=== PATIENT | male | born 1995 | race Caucasian/White ===

== ENCOUNTER 2019-12-04 14:23 | Emergency (ER) | payer OTHER ==
[~2019-12-04] VITALS: Ht 182.9 cm; Wt 56.7 kg
[~2019-12-04 14:23] MED LIST: ALLEGRA ALLERGY60 MG; IBUPROFEN 800800 M1 PO; MAXITROL EYE DRO5 ML OP; MIRALAX255 GM PO; NAPHCON-A EYE D15 ML OP; PROBIOTIC1 EAC1 PO; SINGULAIR 10 MG10 M1 PO; XOPENEX0.31 MG/3 IH; ZYRTEC10 M2 PO; patanol
[2019-12-04 14:26] VITALS: BP 127/78
[2019-12-04 15:06] LABS: ABSOLUTE NEUTROPHILS 6.5 thou/uL (1.4-8.2); BASOPHILS 0.8 % (0.0-2.0); EOSINOPHILS 1.7 % (0.0-3.0); HEMATOCRIT 43.3 % (42.0-52.0); LYMPHOCYTES 18.7 % (24.0-44.0); MCH 31.3 pg (26.0-34.0); MCHC 34.7 g/dL (28.0-37.0); MCV 90.2 fL (80.0-100.0); MONOCYTES 6.2 % (1.0-8.0); PLATELET COUNT 304 thou/uL (150-400); POLYS 72.6 % (36.0-66.0); RDW 14.2 % (10.5-14.5); WBC 8.9 thou/uL (4.0-11.0)
[2019-12-04 15:07] LABS: CALCIUM 9.1 mg/dL (8.5-10.1); CREATININE 0.9 mg/dL (0.7-1.3)
--- NOTE | 2019-12-05 07:52 | EKG ---
[facility] [place] [address] ELECTROCARDIOGRAM REPORT Name: CURTIS PAUL Room #: DEP [facility]#: [id number] Admission: 12/04/19 Attend Phys: Discharge: 12/04/19 Date of : [birth year] Report #: [id number] THIS REPORT FOR: cc: MILES - Carli family physician/PCP MILES - Carli family physician/PCP Db Sunshine MD 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: [facility] : 1995 Requested By: Neri Herrera Order Number: [id number] MD: Db Sunshine Measurements Intervals [place] Rate: 61 P: 41 MS: 120 QRS: 73 QRSD: 95 T: 51 QT: 382 QTc: 385 Interpretive Statements Sinus rhythm ST elev, probable normal early repol pattern No previous ECG available for comparison Electronically Signed On 12-05-2019 7:52:10 CDT by Db Sunshine [email or web address] <ELECTRONICALLY SIGNED> By: Db Sunshine MD, [facility] 12/05/19 [id number] 1434 Db Sunshine MD, [facility] /EPI
== END 2019-12-04 16:02 | disposition home or self-care (01) ==
LOC: ER 14:23
PROVIDERS: Emergency Medicine
DX: R07.89 Other chest pain (principal); J45.909 Unspecified asthma, uncomplicated; Z79.899 Other long term (current) drug therapy; Z88.8 Allergy status to other drugs, medicaments and biological substances

== ENCOUNTER 2021-04-28 11:41 | Emergency (ER) | payer OTHER ==
[~2021-04-28] VITALS: Ht 182.9 cm; Wt 68.0 kg
[2021-04-28 11:43] VITALS: BP 120/90
== END 2021-04-28 13:14 | disposition home or self-care (01) ==
LOC: ER 11:41
DX: S69.91XA Unspecified injury of right wrist, hand and finger(s), initial encounter (principal); J45.909 Unspecified asthma, uncomplicated; Z90.89 Acquired absence of other organs; Z79.899 Other long term (current) drug therapy; Z88.8 Allergy status to other drugs, medicaments and biological substances; W19.XXXA Unspecified fall, initial encounter; Y93.89 Activity, other specified; Y92.89 Other specified places as the place of occurrence of the external cause; Y99.8 Other external cause status